=== PATIENT | male | born 1965 | race Caucasian/White ===

== ENCOUNTER → 2016-12-21 05:51 | Emergency (ER) | payer OTHER ==
[2016-12-21 07:53] VITALS: BP 166/116
--- NOTE | 2016-12-22 22:32 | ED ---
Yary Helms Rebecca, scribed for Mamadou Vásquez MD on 12/21/16 at 0737 . Skin Complaint - HPI Summary HPI Summary: Pt is a 51 y/o M who presents to ED c/o bilateral LE rash. Rash began "a few days ago" and has been constant since onset. Rash is discrete to the LE without radiation and is characterized as erythematous. Rash is not painful. Sx aggravated and alleviated by nothing. Denies any pruritis, fever, chills, diaphoresis and swelling. Pt is currently taking Amoxicillin (875 mg) for an infection in the R side of the jaw for which he has had 2 doses. Has had it for a few days, but stopped after noticing the rash. Has taken amoxicillin before, but not as strongly of a dose. Denies any recent bug or tick bites. WENDY. Has an appointment with his dentist on January 10. - History of Current Complaint Chief Complaint: EDRashSkinAbscess Time Seen by Provider: 12/21/16 07:24 Stated Complaint: BILATERAL LEG RASH Hx Obtained From: Patient Onset/Duration: Started Days Ago, Still Present Timing: Constant Current Severity: None Pain Intensity: 0 Pain Scale Used: 0-10 Numeric Skin Location: Leg - Bilateral LE Character: Redness Aggravating Symptom(s): Nothing Alleviating Symptom(s): Nothing Associated Signs & Symptoms: Negative - Allergy/Home Medications Allergies/Adverse Reactions: Allergies Allergy/AdvReac Type Severity Reaction Status Date / Time Bee Venom Allergy Anaphylatic Verified 12/21/16 06:16 Shock PMH/Surg Hx/FS Hx/Imm Hx Endocrine/Hematology History: Denies: Hx Diabetes Cardiovascular History: Reports: Hx Hypertension - denies now----states his bp is high due to enery drink and coffee -encour, Other Cardiovascular Problems/ Disorders Denies: Hx Congestive Heart Failure - Surgical History Surgery Procedure, Year, and Place: bilat knees; tubes as child bilat; tonsils Infectious Disease History: No Infectious Disease History: Reports: Hx Shingles Denies: Hx Clostridium Difficile, Hx Hepatitis, Hx Human Immunodeficiency Virus (HIV), Hx of Known/Suspected MRSA, Hx Tuberculosis, Hx Known/Suspected VRE , Hx Known/Suspected VRSA, History Other Infectious Disease, Traveled Outside the [place] in Last 30 Days - Family History Known Family History: Positive: Hypertension, Diabetes - Social History Alcohol Use: None Substance Use Type: Reports: None Hx Tobacco Use: No Smoking Status (MU): Former Smoker Review of Systems Negative: Fever, Chills, Skin Diaphoresis Negative: Erythema Negative: Sore Throat Negative: Chest Pain Negative: Shortness Of Breath, Cough Negative: Abdominal Pain, Vomiting, Nausea Negative: Myalgia, Edema Positive: Rash - Rash on the bilateral LE without any pain, Other - Denies any swelling Neurological: Other - Negative dizziness All Other Systems Reviewed And Are Negative: Yes Physical Exam - Summary Physical Exam Summary: Constitutional: Well-developed, Well-nourished, Alert. (-) Distressed Skin: Warm, Dry. Splotchy rash on the LE which blanches. HENT: Normocephalic; Atraumatic. Small abscess on the R upper molar that is too small to drain. It is not actively draining. The tooth is eroded down to the gum line. No trismus. Eyes: Conjunctiva normal Neck: Musculoskeletal ROM normal neck. (-) JVD, (-) Stridor, (-) Tracheal deviation Cardio: Rhythm regular, rate normal, Heart sounds normal; Intact distal pulses; The pedal pulses are 2+ and symmetric. Radial pulses are 2+ and symmetric. (-) Murmur Pulmonary/Chest wall: Effort normal. (-) Respiratory distress, (-) Wheezes, (-) Rales Abd: Soft, (-) Tenderness, (-) Distension, (-) Guarding, (-) Rebound Musculoskeletal: (-) Edema Lymph: (-) Cervical adenopathy Neuro: Alert, Oriented x3 Psych: Mood and affect Normal Triage Information Reviewed: Yes Vital Signs On Initial Exam: Initial Vitals Temp Pulse Resp BP Pulse Ox 96.5 F 88 18 184/133 99 12/21/16 05:53 12/21/16 05:53 12/21/16 05:53 12/21/16 05:53 12/21/16 05:53 Vital Signs Reviewed: Yes Diagnostics - Vital Signs Vital Signs Temp Pulse Resp BP Pulse Ox 12/21/16 06:14 98.6 F 88 18 162/119 99 12/21/16 05:53 96.5 F 88 18 184/133 99 - Laboratory Lab Statement: Any lab studies that have been ordered have been reviewed, and results considered in the medical decision making process. Course/Dx - Course Assessment/Plan: Pt is a 51 y/o M who presents to ED c/o bilateral erythematous LE rash that began a few days ago and has been constant since onset. Rash began "a few days ago" and has been constant since onset. Rash is not painful. Denies any pruritis, fever, chills, diaphoresis and swelling. Pt is currently taking Amoxicillin (875 mg) for an infection in the R side of the jaw for which he has had 2 doses. Has had it for a few days, but stopped after noticing the rash. Has taken amoxicillin before, but not as strongly of a dose. Denies any recent bug or tick bites. NKDA. Has an appointment with his dentist on January 10. There is no sign of Faustin-Cory Syndrome. Pt will be D/C to home with Dx of drug eruption and a follow up with his PCP and an Rx for Clindamycin with directions to cease the Amoxicillin. - Diagnoses Provider Diagnoses: Drug eruption Discharge - Discharge Plan Condition: Stable Disposition: HOME Prescriptions: Clindamycin CAP* [Cleocin 150 MG CAP*] 300 mg PO QID #80 cap Patient Education Materials: Adverse Drug Reaction (ED) Referrals: Gregorio Mcbride MD [Primary Care Provider] - 3 Days Additional Instructions: Stop taking the Amoxicillin. RETURN TO THE EMERGENCY DEPARTMENT FOR CHANGING OR WORSENING SYMPTOMS The documentation as recorded by the Yary romero Rebecca accurately reflects the service I personally performed and the decisions made by , Mamadou Vásquez MD.
== END | disposition home or self-care (01) ==
LOC: ED 05:51
DX: L27.1 Localized skin eruption due to drugs and medicaments taken internally (principal); T36.0X5A Adverse effect of penicillins, initial encounter; Y92.9 Unspecified place or not applicable; Z91.030 Bee allergy status; Z87.891 Personal history of nicotine dependence
CPT/HCPCS: 99282

== ENCOUNTER → 2018-04-10 01:23 | Emergency (ER) | payer OTHER ==
[~2018-04-10 01:23] MED LIST: Aspirin TAB* 325 MG PO ONE; cefTRIAXone(*) 1 GM in NS 0.9% 50 ML* 50 ML IVPB ONE
--- NOTE | 2018-04-10 02:15 | ED ---
Lower Extremity - HPI Summary HPI Summary: This patient is a 52 year old M presenting to [facility] with a chief complaint of left knee pain, redness, and swelling. The patient rates the pain 10/10 in severity. Symptoms aggravated by movement. Patient reports rash on his back, ecchymosis, and dry mucus membranes. Patient denies SOB, MARTINEZ, double vision, vomiting, blurry vision, ear pain, sore throat, neck pain, CP, ABD pain, back pain, anxiety, and depression. Pt states he has been taking lovenox shots to reduce chance of clotting. Pt had a total knee replacement on 04-01-[address] Villareal at [facility] and has not had his dressings changed. He states he was discharged with it being swollen and red. - History of Current Complaint Chief Complaint: EDSoftTissueLowExtr Stated Complaint: LEFT KNEE PAIN Hx Obtained From: Patient Onset/Duration: Still Present Severity Initially: Moderate Severity Currently: Severe Pain Intensity: 10 Pain Scale Used: 0-10 Numeric Timing: Constant Location: Is Discrete @ - LLE Associated Signs And Symptoms: Positive: Swelling, Redness, Bruising, Knee Pain. Negative: Fever - Allergies/Home Medications Allergies/Adverse Reactions: Allergies Allergy/AdvReac Type Severity Reaction Status Date / Time bee venom protein (honey bee) Allergy Anaphylatic Verified 04/10/18 05:24 Shock Home Medications: Home Medications Acetaminophen [Pain Reliever] 500 mg PO Q8H 04/10/18 [History Confirmed 04/10/18 ] Amitriptyline TAB* [Elavil TAB*] 25 mg PO ONCE 04/10/18 [History Confirmed 04/10] Atenolol 50 mg PO DAILY 04/10/18 [History Confirmed 04/10/18] Baclofen 10 mg PO BID 04/10/18 [History Confirmed 04/10/18] Cyclobenzaprine TAB* [Flexeril 10 MG TAB*] 10 mg PO BID 04/10/18 [History Confirmed 04/10/18] Enoxaparin(*) [Lovenox(*)] 30 mg SUBCUT BID 04/10/18 [History Confirmed 04/10/18 ] Ferrous Sulfate 325 mg PO DAILY 04/10/18 [History Confirmed 04/10/18] Oxycodone IR 10 MG(NF) 10 mg PO Q4HR PRN 04/10/18 [History Confirmed 04/10/18] PMH/Surg Hx/FS Hx/Imm Hx Endocrine/Hematology History: Denies: Hx Diabetes Cardiovascular History: Reports: Hx Hypertension - denies now----states his bp is high due to enery drink and coffee -encour, Other Cardiovascular Problems/ Disorders Denies: Hx Congestive Heart Failure - Surgical History Surgery Procedure, Year, and Place: bilat knees; tubes as child bilat; tonsils Infectious Disease History: No Infectious Disease History: Reports: Hx Shingles Denies: Hx Clostridium Difficile, Hx Hepatitis, Hx Human Immunodeficiency Virus (HIV), Hx of Known/Suspected MRSA, Hx Tuberculosis, Hx Known/Suspected VRE , Hx Known/Suspected VRSA, History Other Infectious Disease, Traveled Outside the [place] in Last 30 Days - Family History Known Family History: Positive: Hypertension, Diabetes - Social History Alcohol Use: None Substance Use Type: Reports: None Hx Tobacco Use: No Smoking Status (MU): Former Smoker Review of Systems Negative: Blurred Vision Negative: Sore Throat, Ear Ache Negative: Chest Pain Negative: Shortness Of Breath Negative: Vomiting Musculoskeletal: Negative - neck pain Positive: Edema, Other - LLE pain Positive: Other - redness at the LLE Negative: Headache Negative: Anxious, Depressed All Other Systems Reviewed And Are Negative: No Physical Exam - Summary Physical Exam Summary: Appearance: Alert, conversive, nontoxic appearing Skin: Warm, dry, no mottling, no rashes, no contusions HEENT: EOMI, PERRL, moist mucous membranes Neck: No masses on the neck, supple Respiratory: Clear to auscultation, breath sounds present, no rales, no rhonchi , no wheezes Cardiovascular: RRR, pulses are symmetrical in both lower and upper extremities Abdomen: Soft, non-tender Bowel Sounds: Present Musculoskeletal: No CVA tenderness, no obvious deformity, moving all extremities in a grossly normal manner, the entire LLE is swollen. The bandage is intact and there is no bleeding through the bandage. There is decreased ROM. Bruising in the anterior aspect of the left thigh. The redness wraps the entire right thigh and knee. There is pitting edema Neurological: A&Ox3, CN II-XII Intact, moving all extremities symmetrically Psychiatric: Normal affect and mood Triage Information Reviewed: Yes Vital Signs On Initial Exam: Initial Vitals Temp Pulse Resp BP Pulse Ox 98.2 F 92 18 122/79 97 04/10/18 01:40 04/10/18 01:40 04/10/18 01:40 04/10/18 01:40 04/10/18 01:40 Vital Signs Reviewed: Yes Diagnostics - Vital Signs Vital Signs Temp Pulse Resp BP Pulse Ox 04/10/18 01:40 98.2 F 92 18 122/79 97 - Laboratory Result Diagrams: 04/10/18 02:23 04/10/18 02:23 Lab Statement: Any lab studies that have been ordered have been reviewed, and results considered in the medical decision making process. - EKG 0505 Cardiac Rate: NL EKG Rhythm: Sinus Rhythm - at [address] Segment: Normal Ectopy: None Re-Evaluation - Re-Evaluation First Eval Re-Evaluation Time: 03:59 Change: Unchanged Comment: The patient was informed that he needs to be transferred to [place] to Dr. Taylor, his original surgery. Second Eval Re-Evaluation Time: 05:00 Change: Worse Comment: The patient is complaining of CP. EKG will be ordered. Lower Extremity Course/Dx - Course Assessment/Plan: This patient is a 52 year old M presenting to [facility] with a chief complaint of left knee pain, redness, and swelling. The patient rates the pain 10/10 in severity. Symptoms aggravated by movement. Patient reports rash on his back, ecchymosis, and dry mucus membranes. Patient denies SOB, MARTINEZ, double vision, blurry vision, ear pain, sore throat, neck pain, CP, ABD pain, back pain, anxiety, and depression. Pt states he has been taking lovenox shots to reduce chance of clotting. Pt had a total knee replacement on 04-01-[address] Taylor at [facility] and has not had his dressings changed. He states he was discharged with it being swollen and red. The patient has cellulites of the left leg. I will defer taping the left knee. Test results showed elevated CRP abnormal elevated BUN and creatinine. In the ED course the patient was given ceftriaxone. Dx cellulitis left leg. We discussed patient care with Dr. Reid and they recommended transferring the patient. We contacted [facility] and they have agreed to contact Dr Taylor or Dr Barnett who is automotive sales professional. We discussed patient care with Dr Barnett and he has accepted the patient for admission into medicine. The accepting doctor will be Dr. Noriega. I discussed the case with Dr. Noriega who has accepted the patient for admission. Patient will be transferred. The patient is agreeable with this plan. - Diagnoses Provider Diagnoses: Cellulitis of left leg - Critical Care Time Critical Care Time: 30-74 min Discharge - Sign-Out/Discharge Documenting (check all that apply): Patient Departure - transfer - Discharge Plan Condition: Fair Disposition: TRANS HIGHER LVL OF CARE FAC Referrals: Gregorio Mcbride MD [Primary Care Provider] - - Billing Disposition and Condition Condition: FAIR Disposition: Trans Higher Lvl of Care Fac - Attestation Statements Document Initiated by Scribe: Yes Documenting Scribe: Dale Hernandez Provider For Whom Scribe is Documenting (Include Credential): Taylor Powers MD Scribe Attestation: IDale, scribed for Taylor Powers MD on 04/10/18 at 0647. Scribe Documentation Reviewed: Yes Provider Attestation: The documentation as recorded by the Dale romero accurately reflects the service I personally performed and the decisions made by me, Taylor Powers MD Consult Consult: 0321 We discussed patient care with Dr. Reid and they recommended transferring the patient. 0414 We contacted [facility] and they have agreed to contact Dr Taylor or Dr Barnett who is automotive sales professional. 0417 We discussed patient care with Dr Barnett and he has accepted the patient for admission into medicine. The accepting doctor will be Dr. Noriega. 0502 I discussed the case with Dr. Noriega who has accepted the patient for admission
[2018-04-10 02:29] LABS: ABS Basophils 0.1 10^3/ul (0-0.2); ABS Eosinophils 0.2 10^3/ul (0-0.6); ABS Lymphocytes 1.3 10^3/ul (1.0-4.8); ABS Monocytes 0.8 10^3/ul (0-0.8); ABS Neutrophils 4.8 10^3/ul (1.5-7.7); ABS Nucleated RBC 0 10^3/ul; Eosinophil % 3.4 % (0-6); Hematocrit 35 % (42-52); Hemoglobin 12.3 g/dl (14.0-18.0); Lymphocyte % 17.5 % (25-47); Mean Corpuscular HGB Conc 35 g/dl (31-36); Mean Corpuscular Hemoglobin 31 pg (27-31); Mean Corpuscular Volume 88 fL (80-94); Mean Platelet Volume 7.9 um3 (7.4-10.4); Nucleated Red Blood Cells % 0.1; Platelet Count 285 10^3/ul (150-450); Red Blood Count 3.96 10^6/ul (4.00-5.40); Red Cell Distribution Width 14 % (10.5-15); White Blood Count 7.2 10^3/ul (3.5-10.8)
[2018-04-10 02:50] LABS: EGFR Non-African American 32.4 (>60)
[2018-04-10 05:56] VITALS: BP 109/75
--- NOTE | 2018-04-10 07:50 | RAD ---
Indication: Left knee swelling. 2 views of left knee demonstrates bipolar left knee replacement in satisfactory position. Degenerative changes of patellofemoral joint is noted. No periprosthetic fracture is noted although soft tissue swelling is noted. IMPRESSION: Left knee replacement in satisfactory position. Soft tissue swelling without definite fracture. R1NF
== END | disposition short-term general hospital (02) ==
LOC: ED 01:23
DX: L03.116 Cellulitis of left lower limb (principal); R07.89 Other chest pain; R79.82 Elevated C-reactive protein (CRP); R79.89 Other specified abnormal findings of blood chemistry; Z96.653 Presence of artificial knee joint, bilateral; Z91.030 Bee allergy status; Z87.891 Personal history of nicotine dependence
CPT/HCPCS: 36415; 80053; 83605; 85025; 85652; 86140; 87040; 93005; 96365; 99284; J0696

== ENCOUNTER 2019-03-11 12:40 | Emergency (ER) | payer MEDICARE, MEDICAID ==
[2019-03-11 12:54] VITALS: BP 114/60
--- NOTE | 2019-03-11 13:14 | UC ---
Skin Complaint HPI - HPI Summary HPI Summary: 53-year-old male comes in with a chief complaint of rash. Started several days ago. Is get an itching red rash on his lower back that he feels a spreading around to his front lower abdomen. No fevers or chills. Has not tried any medications. No new medications. - History of Current Complaint Chief Complaint: UCSkin Time Seen by Provider: 03/11/19 12:59 Stated Complaint: RASH Pain Intensity: 0 - Allergy/Home Medications Allergies/Adverse Reactions: Allergies Allergy/AdvReac Type Severity Reaction Status Date / Time bee venom protein (honey bee) Allergy Anaphylatic Verified 03/11/19 12:55 Shock PMH/Surg Hx/FS Hx/Imm Hx Previously Healthy: Yes Endocrine History: Dyslipidemia Cardiovascular History: Hypertension GI/ History: Gastroesophageal Reflux - Surgical History Surgical History: Yes Surgery Procedure, Year, and Place: bilat knees; tubes as child bilat; tonsils - Family History Known Family History: Positive: Hypertension, Diabetes - Social History Alcohol Use: None Substance Use Type: None Smoking Status (MU): Former Smoker When Did the Patient Quit Smoking/Using Tobacco: none since age 15 Review of Systems All Other Systems Reviewed And Are Negative: Yes Constitutional: Positive: Negative Skin: Positive: Other - SEE HPI Eyes: Positive: Negative ENT: Positive: Negative Respiratory: Positive: Negative Cardiovascular: Positive: Negative Gastrointestinal: Positive: Negative Motor: Positive: Negative Neurovascular: Positive: Negative Musculoskeletal: Positive: Negative Neurological: Positive: Negative Psychological: Positive: Negative Is Patient Immunocompromised?: No Physical Exam Triage Information Reviewed: Yes Appearance: Well-Appearing, No Pain Distress, Well-Nourished Vital Signs: Initial Vital Signs Temp 98.1 F 03/11/19 12:48 Pulse 86 03/11/19 12:48 Resp 16 03/11/19 12:48 BP 114/60 03/11/19 12:48 Pulse Ox 96 03/11/19 12:48 Vital Signs Reviewed: Yes Eye Exam: Normal Eyes: Positive: Conjunctiva Clear Neck: Positive: Supple Respiratory: Positive: No respiratory distress Musculoskeletal: Positive: Strength Intact, ROM Intact Neurological: Positive: Alert, Muscle Tone Normal Psychological: Positive: Age Appropriate Behavior Skin: Positive: Other - On the low back there is a confluent flat erythematous blanching rash that's warm to touch. Patient does have some scratch conde on the skin on his lower abdomen but the rash does not extend that far. Course/Dx - Course Course Of Treatment: The warm confluent erythematous blanching rash on the back looks most like cellulitis and therefore we will treat with cephalexin. Because it is itchy it may be more of a dermatitis. Going to start with cephalexin and Benadryl. I discussed with the patient that if he has a fever he feels ill he needs to go to the emergency department for further evaluation and care. I also let him know that if after 2 days of antibiotics and Benadryl if there is no change in the rash he can start the steroid. If not completely improved he is going to follow-up with dermatology or his primary care doctor. - Diagnoses Provider Diagnosis: Rash Discharge ED - Sign-Out/Discharge Documenting (check all that apply): Patient Departure All imaging exams completed and their final reports reviewed: No Studies - Discharge Plan Condition: Stable Disposition: HOME Prescriptions: Cephalexin CAP* [Keflex CAP*] 500 mg PO QID #40 cap diPHENhydraMINE PO* [Benadryl PO 50 MG CAP*] 50 mg PO TID PRN #30 cap PRN Reason: Rash methylPREDNISolone [Medrol Dosepak 4 MG*] 0 mg PO .SEE FRANCISCO INSTRUCTION #1 francisco Patient Education Materials: Cellulitis (ED), Acute Rash (ED), Dermatitis (ED) Referrals: Rene Sullivan DO [Primary Care Provider] - Danny Hutchison MD [Medical Doctor] - Gretel Le [Medical Doctor] - Additional Instructions: FOLLOW UP WITH YOUR PRIMARY CARE DOCTOR OR DERMATOLOGY IF NOT COMPLETELY IMPROVED. START THE BENADRYL AND CEPHALEXIN NOW DIRECTED. IF YOU FEEL WORSE GO TO THE EMERGENCY DEPARTMENT. IF THE RASH HAS NOT IMPROVED IN 2 DAYS AND YOU FEEL WELL AND DO NOT HAVE A FEVER , START THE MEDROL DOSE FRANCISCO. GO TO THE EMERGENCY DEPARTMENT IF YOUR CONDITION WORSENS; SPREAD OF RASH, FEVER , YOU FEEL ILL OR ANY QUESTIONS OR CONCERNS. - Billing Disposition and Condition Condition: STABLE Disposition: Home
== END 2019-03-11 13:27 | disposition home or self-care (01) ==
LOC: UCEAST 12:40
DX: R21 Rash and other nonspecific skin eruption (principal); I10 Essential (primary) hypertension; Z91.030 Bee allergy status; Z87.891 Personal history of nicotine dependence
CPT/HCPCS: 99212; G0463

== ENCOUNTER 2021-05-12 12:59 | Inpatient (IN) ==
[2021-05-12] MEDS ORDERED: Thiamine 100 MG/ML 2 ml VIAL (200 mg) IM ONE (13:07)
[2021-05-12 13:52] LABS: ABS Eosinophils 0.2 10^3/ul (0-0.6); ABS Lymphocytes 1.1 10^3/ul (1.0-4.8); ABS Monocytes 0.6 10^3/ul (0-0.8); ABS Neutrophils 2.1 10^3/ul (1.5-7.7); Eosinophil % 3.8 %; Hematocrit 45 % (42-52); Hemoglobin 15.8 g/dL (14.0-18.0); Lymphocyte % 26.2 %; Mean Corpuscular HGB Conc 35 g/dL (31-36); Mean Corpuscular Hemoglobin 32 pg (27-31); Mean Corpuscular Volume 90 fL (80-94); Mean Platelet Volume 8.6 fL (7.4-10.4); Nucleated Red Blood Cells % 0.1; Platelet Count 216 10^3/uL (150-450); Red Blood Count 5.02 10^6 /uL (4.18-5.48); Red Cell Distribution Width 14 % (10-15)
[2021-05-12 14:11] LABS: ALT 28 U/L (7-52); AST 28 U/L (13-39); Albumin 4.2 g/dL (3.2-5.2); Albumin/Globulin Ratio 1.4 (1-3); Alkaline Phosphatase 101 U/L (35-149); Anion Gap 11 mmol/L (2-11); Blood Urea Nitrogen 30 mg/dL (6-24); CO2 Carbon Dioxide 27 mmol/L (22-32); Calcium 8.9 mg/dL (8.6-10.3); Chloride 94 mmol/L (101-111); Globulin 3.1 g/dL (2-4); Glucose 356 mg/dL (70-100); Potassium 3.5 mmol/L (3.5-5.0); Sodium 132 mmol/L (135-145); Total Protein 7.3 g/dL (6.4-8.9); eGFR CKD-EPI 44.2 (>60)
[2021-05-12 14:12] LABS: Urine Appearance Cloudy; Urine Bilirubin Negative (Negative); Urine Blood Negative (Negative); Urine Color Amber; Urine Glucose 3+(>=500 mg/dL) (Negative); Urine Ketones Negative (Negative); Urine Nitrite Negative (Negative); Urine Protein 2+(100 mg/dL) (Negative); Urine Specific Gravity 1.026 (1.002-1.030); Urine Urobilinogen Positive (Negative)
[2021-05-12 14:23] LABS: Urine Bacteria Absent (Absent); Urine Red Blood Cell Trace(0-2/hpf) (Absent); Urine White Blood Cell Trace(0-5/hpf) (Absent)
[2021-05-12 14:27] LABS: Alcohol, S < 13 mg/dL (<13); Salicylate < 2.50 mg/dL (<30)
[2021-05-12] MEDS ORDERED: Dextrose 50% Syringe 50 ml 25 GM/50 ML SYRINGE IV PUSH PRN (14:27)
[2021-05-12 14:35] LABS: Acetaminophen < 15 mcg/mL
[2021-05-12 14:35] LABS: Urine Benzodiazepine Screen None Detected (None Detect); Urine Cannabinoids Screen Presumptive Positive (None Detect); Urine Opiates Screen None Detected (None Detect)
[2021-05-12 14:42] LABS: TSH Ultra Thyroid Stim Horm 1.16 mcIU/mL (0.34-5.60)
[2021-05-12 16:49] LABS: Rapid COVID-19 Molecular Undetected (Undetected)
[2021-05-12] MEDS ORDERED: NICOTINE GUM 2 MG PO PRN (20:02)
[2021-05-12] MEDS ORDERED: GUM PO PRN (20:02)
[2021-05-12] MEDS ORDERED: Nicotine GUM 2MG FRUIT FLAVOR PO PRN (21:00)
[2021-05-13] MEDS: Nicotine PATCH 21 MG/24 HR PATCH TRANSDERM SCH (08:43)
[2021-05-13] MEDS: CHOLECALCIFEROL 50 MCG PO SCH (08:49)
[2021-05-13] MEDS ORDERED: DULoxetine DR 60 mg CAP PO SCH (09:00)
[2021-05-13] MEDS ORDERED: Multivitamins/Minerals TAB PO SCH (09:00)
[2021-05-13] MEDS: DULoxetine DR 60 mg CAP PO SCH (20:47)
[2021-05-14 08:31] LABS: HDL Cholesterol 35.6 mg/dL
[2021-05-14] MEDS: DULoxetine DR 30 mg CAP PO SCH (10:07)
[2021-05-14] MEDS: Nicotine PATCH 21 MG/24 HR PATCH TRANSDERM SCH (10:08)
[2021-05-14] MEDS: CHOLECALCIFEROL 50 MCG PO SCH (10:09)
[2021-05-14] MEDS: DULoxetine DR 60 mg CAP PO SCH (20:22)
[2021-05-15] MEDS: DULoxetine DR 30 mg CAP PO SCH (08:41)
[2021-05-15] MEDS: Nicotine PATCH 21 MG/24 HR PATCH TRANSDERM SCH (08:42)
[2021-05-15] MEDS: CHOLECALCIFEROL 50 MCG PO SCH (08:42)
[2021-05-15] MEDS: CMC:Omeprazole 20 mg CAP (NF) PO SCH (08:43)
[2021-05-15] MEDS: DULoxetine DR 60 mg CAP PO SCH (20:39)
[2021-05-16 00:23] VITALS: BP 114/90
[2021-05-16] MEDS: DULoxetine DR 30 mg CAP PO SCH (09:13)
[2021-05-16] MEDS: Nicotine PATCH 21 MG/24 HR PATCH TRANSDERM SCH (09:14)
[2021-05-16] MEDS: CMC:Omeprazole 20 mg CAP (NF) PO SCH (09:14)
[2021-05-16] MEDS: CHOLECALCIFEROL 50 MCG PO SCH (09:14)
== END 2021-05-16 09:50 | disposition home or self-care (01) | DRG 885 ==
LOC: ED 12:59 → BSU 17:12
PROVIDERS: ADMIT Psychiatry & Neurology Psychiatry; ATTEND Psychiatry & Neurology Psychiatry